=== PATIENT | female | born 1980 ===

== ENCOUNTER 2016-06-26 11:29 | Inpatient (IN) | payer OTHER ==
[~2016-06-26] VITALS: Ht 167.6 cm; Wt 63.0 kg
[2016-06-26] VITALS (64 sets, daily range): BP systolic 84–129; BP diastolic 39–79; PULSE 79–104; RESP 16–20; TEMP 97.9–98.7
[~2016-06-26 11:29] MED LIST: Benzocaine TOP; Docusate Sod/Senna PO; IBUP600 PO; PREN0.01 PO
[2016-06-26] MEDS ORDERED: LACTATED RINGER'S 1000 ML INJ 1,000 ML IV PRN (12:31)
--- NOTE | 2016-06-26 12:37 | HHI.HP ---
HPI Chief Complaint 40 + weeks IUP with favorable Bishops Score Date Seen: Jun 26, 2016 Time Seen: 12:34 Travel History International Travel<30 Days: No Contact w/Intl Traveler<30Days: No Known Affected Area: No History of Present Illness HPI 36 yo mhf at term with favorable cervix for AROM PNC with HOGA and low risk with no issues. Proven pelvis to 6 1/2 pounds EFW 7 pounds in prodromal labor No leaking or bleeding normal glucola GBS - Allergies-Medications (Allergen,Severity, Reaction): Coded Allergies: No Known Allergies (Verified , 04/02/11) Home Meds Active Scripts Ibuprofen (Motrin 600 Mg Tab)600 Mg Exy229 Mg PO Q6H PRN ( CRAMPING) # 28 TAB Ref 0 Prov:SusannahIngridsher DELGADO 05/15/14 [Docusate Sod/Senna] (Stacy Colace Tab 8.6 Mg Tab)1 TAB TAB No Conflict Check2 Tab PO Q12H PRN (CONSTIPATION) #14 TAB Ref 0 Prov:DavalosIngrid CNM 05/15/14 [Benzocaine] (Americaine 20% Topical Whitney)60 SPRAY/60 ML SPRAY No Conflict Check1 Whitney TOP Q4H PRN (PAIN) #1 CAN Ref 0 Prov:Ingrid Davalos GERTRUDE DELGADO 05/15/14 Reported Medications Multivit/Min/Fol Ac/Iron/Pren ( Vit ( Plus)) Tab1 Tab PO DAILY #30 04/01/11 Physical Exam Narrative GENERAL: Well-nourished, well-developed patient. SKIN: Warm and dry. HEAD: Normocephalic and atraumatic. EYES: No scleral icterus. No injection or drainage. ENT: No nasal drainage noted. Mucous membranes pink. Airway patent. NECK: Supple, trachea midline. No JVD. CARDIOVASCULAR: Regular rate and rhythm without murmurs, gallops, or rubs. RESPIRATORY: Breath sounds equal bilaterally. No accessory muscle use. BREASTS: Bilateral exam showed no masses , no retractions, no nipple discharge. ABDOMEN/GI: Abdomen soft, non-tender, bowel sounds present, no rebound, no guarding 40 week strip category one 2/80/-1 EXTREMITIES: No cyanosis or edema. BACK: Nontender without obvious deformity. No CVA tenderness. NEUROLOGICAL: Awake and alert. Motor and sensory grossly within normal limits. Five out of 5 muscle strength in all muscle groups. Normal speech. Data Data Orders Admit To Inpatient (06/26/16 ) Code Status (06/26/16 12:31) Vital Signs (Adult) .Per protocol (06/26/16 12:31) Activity Oob Ad Tsering (06/26/16 12:31) ^ Amnioinfusion (06/26/16 12:31) Urinary Catheter Management .ONCE (06/26/16 12:31) Lactated Ringer's 1000 Ml Inj (Lr 1000 M (06/26/16 12:31) Lactated Ringer's 1000 Ml Inj (Lr 1000 M (06/26/16 12:31) Sodium Chlorid 0.9% 500 Ml Inj (Ns 500 M (06/26/16 12:45) Sodium Chlor 0.9% 1000 Ml Inj (Ns 1000 M (06/26/16 12:51) Lidocaine 1% Inj (50 Ml) (Xylocaine 1% I (06/26/16 12:45) Citric Acid-Sodium Citrate Liq (Bicitra (06/26/16 12:45) Fentanyl Inj (Fentanyl Inj) (06/26/16 12:45) Fentanyl Inj (Fentanyl Inj) (06/26/16 12:45) Complete Blood Count With Diff (06/26/16 12:31) Hold Clot (06/26/16 12:31) Abo/Rh Blood Type (06/26/16 12:31) Urinalysis - C+S If Indicated (06/26/16 12:31) Resp Oxygen Non Rebreathe Mask (06/26/16 ) ^ Epidural / Intrathecal Infus (06/26/16 12:31) Oxytocin 30 Units-500ml Premix (Pitocin (06/26/16 12:45) Lidocaine 1% Inj (50 Ml) (Xylocaine 1% I (06/26/16 12:45) Light Mineral Oil (Muri-Lube Oil) (06/26/16 12:45) ^ Non Stress Test (06/26/16 12:31) Response To Medication .Post New Med Administration, Reaction (06/26/16 12:31) ^ Discontinue Medication (06/26/16 12:31) Oxytocin Drip (2-2-30) (06/26/16 12:45) Inpatient Certification (06/26/16 ) Specimen To Be Collected PRN (06/26/16 12:31) Diet Regular Basic (06/26/16 Lunch) Assessment/Plan Assessment and Plan AROM clear anticipate epidural and/or pitocin if needed Ashly Kelly MD Jun 26, 2016 12:37
[2016-06-26] MEDS ORDERED: LIDOCAINE HCL 1% 50 ML VIAL I-DERMAL PRN (12:45)
[2016-06-26] MEDS ORDERED: LIDOCAINE HCL 1% 50 ML VIAL INFIL PRN (12:45)
[2016-06-26] MEDS ORDERED: OXYTOCIN 30 UNITS-500ML PREMIX 500 ML IV SCH (12:45)
[2016-06-26] MEDS ORDERED: SODIUM CHLORID 0.9% 500 ML INJ 500 ML IV PRN (12:45)
[2016-06-26] MEDS ORDERED: CITRIC ACID-SODIUM CITRATE LIQ 30 ML UDC PO SCH (12:45)
[2016-06-26] MEDS ORDERED: OXYTOCIN 30 UNITS-500ML PREMIX 500 ML IV ONE ×2 (12:45→19:15)
[2016-06-26] MEDS ORDERED: MINERAL OIL 10 ML VIAL TOPICAL PRN (12:45)
[2016-06-26] MEDS ORDERED: SODIUM CHLOR 0.9% 1000 ML INJ 1,000 ML IV PRN (12:51)
[2016-06-26] MEDS ORDERED: LACTATED RINGER'S 1000 ML INJ 1,000 ML IV SCH (13:00)
[2016-06-26 13:05] LABS: AUTOMATED NEUTROPHIL # 8.7 TH/MM3 (1.8-7.7); BASOPHIL # 0.1 TH/MM3 (0-0.2); BASOPHIL % 0.5 % (0.0-2.0); EOSINOPHIL # 0.1 TH/MM3 (0-0.4); EOSINOPHIL % 0.7 % (0.0-4.0); HEMO FLAGS DIFF FINAL; LYMPH % 17.7 % (9.0-44.0); MEAN CELL VOLUME 85.2 FL (80.0-100.0); MEAN CORPUSCULAR HEMOGLOBIN 28.5 PG (27.0-34.0); MEAN CORPUSCULAR HGB CONC 33.5 % (32.0-36.0); MONO % 5.2 % (0.0-8.0); NEUT % 75.9 % (16.0-70.0); PLATELET COUNT 290 TH/MM3 (150-450); RED BLOOD COUNT 3.88 MIL/MM3 (4.00-5.30); RED CELL DISTRIBUTION WIDTH 13.8 % (11.6-17.2); WHITE BLOOD COUNT 11.4 TH/MM3 (4.0-11.0)
[2016-06-26 13:09] LABS: BACTERIA, URINE RARE /hpf; BLOOD, URINE MOD (NEG); GLUCOSE,URINE NEG (NEG); HYALINE CAST, URINE 1 /lpf (RARE); KETONE, URINE TRACE mg/dL (NEG); MUCUS URINE FEW /lpf (OCC); NITRITE,URINE NEG (NEG); PH, URINE 6.5 (5.0-8.5); SQUAMOUS EPITHELIAL CELL URINE 5 /hpf (0-5); TRANSITIONAL EPI CELLS, URINE <1 /hpf; URINE COLOR YELLOW (YELLW/STRAW)
[2016-06-26 13:13] LABS: COMMENT (UR) CULTURE INDICATED; CULTURE IF INDICATED CULTURE INDICATED
[2016-06-26] MEDS ORDERED: fentaNYL 2MCG-BUPIV 0.125% INJ 100 ML ONE (14:43)
[2016-06-26] MEDS ORDERED: ePHEDrine/NS 25 MG/5 ML SYR ONE ×2 (14:43→14:48)
[2016-06-26] MEDS ORDERED: BUPIVACAINE HCL PF 0.25% 10 ML VIAL ONE (14:47)
[2016-06-26] MEDS ORDERED: MEASLES, MUMPS, RUBELLA VACCINE 0.5 ML VIAL SQ ONE (16:00)
[2016-06-26] MEDS ORDERED: DIPHTH/TETANUS/ACEL PERTUSSIS (BOOSTER) 0.5 ML VIAL/PFS IM ONE (16:00)
--- NOTE | 2016-06-26 18:28 | PD.OB.DELI ---
Anesthesia: Epidural Episiotomy: Midline Vaginal Delivery: Normal Presentation: Occiput anterior Nuchal Cord: x1 Delayed cord clamping (45 sec): Yes Shoulder Dystocia: Mary maneuver done Infant: Male One Minute : 9 Five Minute : 9 Weight: 7# 7oz Infant Care: Suctioned, Spontaneous crying Placenta: Spontaneous delivery, Intact, 3 vessel cord Laceration: Episiotomy, Vaginal laceration, 2 deg Repair: Chromic interrupted, Vicryl running (Multilayered closure , ext sphintcter intact) Shayne Gresham MD Jun 26, 2016 18:28
[2016-06-26] MEDS ORDERED: OXYTOCIN 10 UNIT/ML AMP XX PRN (18:30)
[2016-06-26] MEDS ORDERED: OXYTOCIN 10 UNIT/ML AMP XX ONE (18:30)
[2016-06-26] MEDS ORDERED: ZOLPIDEM TARTRATE 5 MG TAB PO PRN (18:30)
[2016-06-26] MEDS ORDERED: BENZOCAINE 20% TOPICAL SPRAY 60 ML CAN TOPICAL PRN (18:30)
[2016-06-26] MEDS ORDERED: ALUMINUM/MAGNESIUM/SIMETH 30 ML CUP PO PRN (18:30)
[2016-06-26] MEDS ORDERED: ONDANSETRON ODT 4 MG TAB PO PRN (18:30)
[2016-06-26] MEDS ORDERED: SODIUM CHLORIDE 0.9% FLUSH 5 ML FLUSH IV PRN (18:30)
[2016-06-26] MEDS: ACETAMINOPHEN 325 MG TAB PO PRN ×2 (19:07→23:54)
[2016-06-26] MEDS ORDERED: NO SYSTEM NARCOTICS XX PRN (19:15)
[2016-06-26] MEDS ORDERED: DO NOT ADMINISTER ANTICOAGULANTS XX PRN (19:15)
[2016-06-26] MEDS ORDERED: ePHEDrine/NS 25 MG/5 ML SYR IV PRN (19:15)
[2016-06-26] MEDS ORDERED: fentaNYL 2MCG-BUPIV 0.125% 100 ML EPIDURAL SCH (19:15)
[2016-06-26] MEDS ORDERED: SODIUM CHLORIDE 0.9% FLUSH 5 ML FLUSH IV SCH (21:00)
[2016-06-26] MEDS: DOCUSATE SODIUM 50 MG/SENNA 8.6 MG TAB PO PRN (21:53)
[2016-06-26] MEDS: WITCH HAZEL 50%/GLYCERIN 12.5% 40 PAD JAR TOPICAL PRN (21:53)
[2016-06-27] MEDS: ACETAMINOPHEN 325 MG TAB PO PRN ×3 (04:16→21:08)
[2016-06-27] MEDS: IBUPROFEN 600 MG TAB PO PRN ×3 (08:57→21:09)
--- NOTE | 2016-06-27 11:16 | HHI.OB ---
Subjective Post Day: 1 Remarks PPD#1; S/P , Complex repair of perineum Objective Vitals/I&O Vital Signs Date Time Temp Pulse Resp B/P Pulse Ox O2 Delivery O2 Flow Rate FiO2 06/26/16 21:25 97.9 88 20 111/66 06/26/16 20:10 98.3 06/26/16 20:10 18 06/26/16 20:00 94 120/67 06/26/16 19:55 18 06/26/16 19:45 96 109/59 06/26/16 19:40 18 06/26/16 19:30 86 121/64 06/26/16 19:25 98.7 06/26/16 19:15 96 119/67 06/26/16 19:09 18 06/26/16 19:00 104 113/71 06/26/16 18:45 102 119/71 06/26/16 18:40 18 06/26/16 18:30 102 123/71 06/26/16 18:25 18 06/26/16 18:15 91 113/64 06/26/16 18:00 98 117/67 06/26/16 17:59 18 06/26/16 17:58 97 114/62 06/26/16 17:20 91 126/71 06/26/16 17:15 92 06/26/16 17:10 122/69 17 17:10 90 06/26/16 17:05 95 06/26/16 17:00 99 125/49 06/26/16 16:55 79 124/70 06/26/16 16:50 82 125/74 06/26/16 16:48 98.5 16 17 16:47 82 110/66 06/26/16 16:46 83 85/65 17 16:45 85 17 16:40 83 123/70 17 16:35 82 122/67 17 16:30 82 123/69 17 16:25 86 123/67 06/26/16 16:23 18 06/26/16 16:20 80 125/66 17 16:20 84 17 16:15 80 123/65 17 16:10 82 126/65 06/26/16 16:05 82 121/71 06/26/16 16:00 80 120/67 06/26/16 15:55 87 105/79 06/26/16 15:50 88 112/76 06/26/16 15:46 103 113/67 06/26/16 15:45 87 06/26/16 15:40 86 124/69 06/26/16 15:35 94 116/68 06/26/16 15:30 81 117/67 06/26/16 15:25 86 16 06/26/16 15:24 86 111/65 06/26/16 15:20 85 116/66 06/26/16 15:18 85 119/69 06/26/16 15:15 87 06/26/16 15:13 86 116/60 06/26/16 15:10 83 06/26/16 15:10 82 119/64 06/26/16 15:09 80 117/64 06/26/16 15:07 86 111/64 06/26/16 15:06 82 84/39 06/26/16 15:05 90 06/26/16 15:02 85 120/66 06/26/16 15:00 82 06/26/16 14:55 97 06/26/16 14:54 104 98/52 06/26/16 14:05 91 16 129/72 06/26/16 14:04 98.4 Objective Remarks GENERAL: Well-nourished, well-developed patient. CARDIOVASCULAR: Regular rate and rhythm without murmurs, gallops, or rubs. RESPIRATORY: Breath sounds equal bilaterally. No accessory muscle use. ABDOMEN/GI: Abdomen soft, non-tender. Fundus: Firm, non-tender at umbilicus. GENITOURINARY: Light to moderate bleeding. EXTREMITIES: No cyanosis or edema, non-tender, without signs of DVT. Medications and IVs Current Medications Medications (Trade) Dose Ordered Sig/Enrique Route Start Time Stop Time Status Last Admin Lactated Ringer's 1,000 ml @ 125 mls/hr Q8H IV 06/26/16 13:00 06/26/16 14:38 Lactated Ringer's 1,000 ml @ 3,000 mls/hr Q20M PRN IV 06/26/16 12:31 Sodium Chloride 500 ml @ 1,000 mls/hr ONCE PRN IV 06/26/16 12:45 06/27/16 12:44 (NS 1000 ml Inj) 1,000 ml @ 100 mls/hr Q10H PRN IV 06/26/16 12:51 (fentaNYL INJ) 50 mcg Q1H PRN IV PUSH 06/26/16 12:45 (fentaNYL INJ) 100 mcg Q1H PRN IV PUSH 06/26/16 12:45 Mineral Oil 10 ml 10 ml UNSCH PRN TOPICAL 06/26/16 12:45 (Pitocin 30 Units-NS 500 ml Premix) 500 ml @ 0 mls/hr TITRATE IV 06/26/16 12:45 (NS Flush) 2 ml BID IV 06/26/16 21:00 (NS Flush) 2 ml UNSCH PRN IV 06/26/16 18:30 (Tylenol) 650 mg Q4H PRN PO 06/26/16 18:30 06/27/16 04:16 (Motrin) 600 mg Q6H PRN PO 06/26/16 18:30 06/27/16 08:57 (Americaine 20% Top Spr) 1 spray Q4H PRN TOPICAL 06/26/16 18:30 06/26/16 21:53 (Tucks Pads) 1 applic QID PRN TOPICAL 06/26/16 18:30 06/26/16 21:53 (Stacy-Colace) 2 tab Q12H PRN PO 06/26/16 18:30 06/26/16 21:53 (Ambien) 5 mg HS PRN PO 06/26/16 18:30 (Mag-Al Plus Susp Liq) 15 ml Q8H PRN PO 06/26/16 18:30 (Zofran Odt) 4 mg Q6H PRN PO 06/26/16 18:30 Miscellaneous Information No systemic narcotics to be given except... UNSCH PRN XX 06/26/16 19:15 06/27/16 19:14 Miscellaneous Information DO NOT ADMINISTER ANY ANTICOAGUL... UNSCH PRN XX 06/26/16 19:15 06/27/16 19:14 (fentaNYL 2MCG-BUPIV 0.125% INJ) 100 ml @ 0 mls/hr TITRATE EPIDURAL 06/26/16 19:15 (ePHEDrine/NS 25 MG/5 ML SYR) 10 mg UNSCH PRN IV 06/26/16 19:15 06/27/16 19:14 Assessment/Plan Assessment and Plan PPD#1; Stable; Reinforce ice to perineum,sitz baths Discharge Planning Does not meet criteria Attending Attestation Seen by Shayne Gillespie MD Jun 27, 2016 11:16
--- NOTE | 2016-06-27 11:18 | HHI.DS ---
Admission Date Jun 26, 2016 at 11:29 Admitting Diagnosis Diagnosis: Vaginal Delivery: Spontaneous : Male Brief History 36 yo mhf at term with favorable cervix for AROM PNC with HOGA and low risk with no issues. Proven pelvis to 6 1/2 pounds EFW 7 pounds in prodromal labor No leaking or bleeding normal glucola GBS - Pt Condition on Discharge: Good Discharge Disposition: Discharge Home Discharge Instructions Diet Instructions: As Tolerated, No Restrictions Activities You Can Perform: Shower Only-No Bath, Sitz Bath Activities to Avoid: Driving for 24 hrs, Prolonged Standing, Strenuous Activity , Sexual Activity Shayne Gresham MD Jun 27, 2016 11:18
[2016-06-27] MEDS: WITCH HAZEL 50%/GLYCERIN 12.5% 40 PAD JAR TOPICAL PRN (20:14)
[2016-06-28] MEDS: IBUPROFEN 600 MG TAB PO PRN ×2 (03:14→09:53)
[2016-06-28] MEDS: ACETAMINOPHEN 325 MG TAB PO PRN ×2 (03:16→09:53)
[2016-06-28] MEDS: DOCUSATE SODIUM 50 MG/SENNA 8.6 MG TAB PO PRN (09:53)
--- NOTE | 2016-06-28 11:07 | HHI.OB ---
Subjective Post Day: 2 Remarks PPD#2; Doing well Objective Objective Remarks GENERAL: Well-nourished, well-developed patient. CARDIOVASCULAR: Regular rate and rhythm without murmurs, gallops, or rubs. RESPIRATORY: Breath sounds equal bilaterally. No accessory muscle use. ABDOMEN/GI: Abdomen soft, non-tender. Fundus: Firm, non-tender at umbilicus. GENITOURINARY: Light to moderate bleeding. EXTREMITIES: No cyanosis or edema, non-tender, without signs of DVT. Medications and IVs Current Medications Medications (Trade) Dose Ordered Sig/Enrique Route Start Time Stop Time Status Last Admin Lactated Ringer's 1,000 ml @ 125 mls/hr Q8H IV 06/26/16 13:00 06/26/16 14:38 Lactated Ringer's 1,000 ml @ 3,000 mls/hr Q20M PRN IV 06/26/16 12:31 (NS 1000 ml Inj) 1,000 ml @ 100 mls/hr Q10H PRN IV 06/26/16 12:51 (fentaNYL INJ) 50 mcg Q1H PRN IV PUSH 06/26/16 12:45 (fentaNYL INJ) 100 mcg Q1H PRN IV PUSH 06/26/16 12:45 Mineral Oil 10 ml 10 ml UNSCH PRN TOPICAL 06/26/16 12:45 (Pitocin 30 Units-NS 500 ml Premix) 500 ml @ 0 mls/hr TITRATE IV 06/26/16 12:45 (NS Flush) 2 ml BID IV 06/26/16 21:00 (NS Flush) 2 ml UNSCH PRN IV 06/26/16 18:30 (Tylenol) 650 mg Q4H PRN PO 06/26/16 18:30 06/28/16 09:53 (Motrin) 600 mg Q6H PRN PO 06/26/16 18:30 06/28/16 09:53 (Americaine 20% Top Spr) 1 spray Q4H PRN TOPICAL 06/26/16 18:30 06/26/16 21:53 (Tucks Pads) 1 applic QID PRN TOPICAL 06/26/16 18:30 06/27/16 20:14 (Stacy-Colace) 2 tab Q12H PRN PO 06/26/16 18:30 06/28/16 09:53 (Ambien) 5 mg HS PRN PO 06/26/16 18:30 (Mag-Al Plus Susp Liq) 15 ml Q8H PRN PO 06/26/16 18:30 Ondansetron HCl 4 mg 4 mg Q6H PRN PO 06/26/16 18:30 (fentaNYL 2MCG-BUPIV 0.125% INJ) 100 ml @ 0 mls/hr TITRATE EPIDURAL 06/26/16 19:15 Assessment/Plan Assessment and Plan PPD#2; Stable; Reinforce ice to perineum,sitz baths Discharge Planning Routine Attending Attestation Seen by Shayne Gillespie MD Jun 28, 2016 11:07
== END 2016-06-28 12:33 | disposition home or self-care (01) | DRG 775 ==
LOC: H2EA 11:29 → H1EA 21:04
PROVIDERS: ADMIT Obstetrics & Gynecology; ATTEND Obstetrics & Gynecology
PROC: 0KQM0ZZ Repair Perineum Muscle, Open Approach (ICD-10-PCS; principal; 2016-06-26)
PROC: 10E0XZZ Delivery of Products of Conception, External Approach (ICD-10-PCS; 2016-06-26)
PROC: 0W8NXZZ Division of Female Perineum, External Approach (ICD-10-PCS; 2016-06-26)
PROC: 3E0R3CZ (ICD-10-PCS; 2016-06-26)
PROC: 00HU33Z Insertion of Infusion Device into Spinal Canal, Percutaneous Approach (ICD-10-PCS; 2016-06-26)
DX: O70.1 Second degree perineal laceration during delivery (principal); Z37.0 Single live birth; O09.529 Supervision of elderly multigravida, unspecified trimester; O66.0 Obstructed labor due to shoulder dystocia; Z3A.40 40 weeks gestation of pregnancy; O69.81X0 Labor and delivery complicated by cord around neck, without compression, not applicable or unspecified
CPT/HCPCS: 59025; 81001; 85025; 86900; 86901; 87086; J2590; J7120